=== PATIENT | female | born 1945 | race Native Hawaiian/Other Pacific Islander ===

== ENCOUNTER 2017-04-14 09:51 | Emergency (ER) | payer OTHER, MEDICARE ==
[~2017-04-14] VITALS: Ht 170.2 cm; Wt 68.9 kg
[2017-04-14 10:00] VITALS: TEMP 98.3
[2017-04-14] MEDS ORDERED: LISI10TA11 PO (10:15)
[2017-04-14] MEDS ORDERED: HYDR25TA60 PO (10:15)
[2017-04-14] MEDS ORDERED: ASPIR-LOW81 MG OR (10:15)
[2017-04-14] MEDS ORDERED: DIPH2.5T76 PO (10:17)
[2017-04-14 11:10] LABS: PLATELET COUNT 200 K/uL (152-353)
[2017-04-14 11:19] LABS: POTASSIUM 3.6 mmol/L (3.6-5.2)
[2017-04-14 12:18] VITALS: BP 126/81
== END 2017-04-14 12:28 | disposition home or self-care (01) ==
LOC: ED 09:51
DX: E86.0 Dehydration (principal); R79.89 Other specified abnormal findings of blood chemistry
CPT/HCPCS: 36415; 80053; 81000; 85027; 86609; 86618; 86663; 86664; 86665; 87081; 87804; 87880; 96361; 96374; 99284; J1885

== ENCOUNTER 2017-12-01 08:31 | Outpatient (CLI) | payer OTHER, MEDICARE ==
[~2017-12-01 08:31] MED LIST: ASPIR-LOW81 MG OR; DIPH2.5T76 PO; HYDR25TA60 PO; LISI10TA11 PO
== END 2017-12-01 19:04 | disposition home or self-care (01) ==
LOC: MAMMO 08:31
DX: Z12.31 Encounter for screening mammogram for malignant neoplasm of breast (principal)

== ENCOUNTER 2018-04-13 00:46 | Emergency (ER) | payer OTHER, MEDICARE ==
[~2018-04-13] VITALS: Ht 170.2 cm; Wt 72.6 kg
[2018-04-13 00:54] VITALS: TEMP 98
[2018-04-13 01:52] VITALS: BP 155/69
== END 2018-04-13 01:55 | disposition home or self-care (01) ==
LOC: ED 00:46
DX: F41.8 Other specified anxiety disorders (principal)
CPT/HCPCS: 99281

== ENCOUNTER 2018-04-14 11:20 | Outpatient (CLI) | payer OTHER, MEDICARE | END 2018-04-14 20:33 | disposition home or self-care (01) | LOC: US 11:20 | DX: R10.13 Epigastric pain (principal) ==

== ENCOUNTER 2018-12-15 08:45 | Outpatient (CLI) | payer OTHER, MEDICARE | END 2018-12-15 22:05 | disposition home or self-care (01) | LOC: MAMMO 08:45 | DX: Z12.31 Encounter for screening mammogram for malignant neoplasm of breast (principal) ==

== ENCOUNTER 2019-03-20 | Emergency (ER) | payer OTHER, MEDICARE ==
[~2019-03-20] VITALS: Ht 167.6 cm; Wt 75.3 kg
[2019-03-20 00:44] LABS: PLATELET COUNT 174 K/uL (152-353)
[2019-03-20 01:15] LABS: POTASSIUM 3.9 mmol/L (3.6-5.2)
[2019-03-20 01:35] VITALS: BP 148/67; TEMP 98.5
== END 2019-03-20 01:35 | disposition home or self-care (01) ==
LOC: ED
PROVIDERS: Emergency Medicine
DX: I10 Essential (primary) hypertension (principal)
CPT/HCPCS: 36415; 80053; 81000; 85027; 99283

== ENCOUNTER 2019-06-29 09:49 | Outpatient (CLI) | payer OTHER, MEDICARE | END 2019-06-29 23:45 | disposition home or self-care (01) | LOC: MRI 09:49 | DX: M54.2 Cervicalgia (principal) ==

== ENCOUNTER 2020-01-11 08:47 | Outpatient (CLI) | payer OTHER, MEDICARE | END 2020-01-11 20:53 | disposition home or self-care (01) | LOC: MAMMO 08:47 | DX: Z12.31 Encounter for screening mammogram for malignant neoplasm of breast (principal) ==

== ENCOUNTER 2021-02-26 08:54 | Outpatient (CLI) | payer OTHER, MEDICARE | END 2021-02-26 19:08 | disposition home or self-care (01) | LOC: MAMMO 08:54 | PROVIDERS: ATTEND Registered Nurse | DX: Z12.31 Encounter for screening mammogram for malignant neoplasm of breast (principal) ==

== ENCOUNTER 2021-05-10 20:12 | Emergency (ER) | payer OTHER, MEDICARE | END 2021-05-10 22:25 | disposition home or self-care (01) | LOC: ED 20:12 | DX: L27.0 Generalized skin eruption due to drugs and medicaments taken internally (principal); L50.0 Allergic urticaria; T37.8X5A Adverse effect of other specified systemic anti-infectives and antiparasitics, initial encounter; Y92.89 Other specified places as the place of occurrence of the external cause | CPT/HCPCS: 96372; 99283; J0171; J2930; Q0177 ==

== ENCOUNTER 2021-09-26 02:16 | Emergency (ER) | payer OTHER, MEDICARE ==
[~2021-09-26] VITALS: Ht 167.6 cm; Wt 70.3 kg
[2021-09-26 03:55] LABS: PLATELET COUNT 155 K/uL (152-353)
[2021-09-26] MEDS ORDERED: NP THYROID60 MG (03:55)
[2021-09-26] MEDS ORDERED: SIMV40TA57 PO (03:57)
[2021-09-26] MEDS ORDERED: CETI10TA PO (03:57)
[2021-09-26] MEDS ORDERED: CALCI20 (03:57)
[2021-09-26 04:03] LABS: POTASSIUM 3.9 mmol/L (3.6-5.2)
[2021-09-26 04:51] VITALS: BP 154/76; TEMP 98.4
== END 2021-09-26 04:51 | disposition home or self-care (01) ==
LOC: ED 02:16
PROVIDERS: Emergency Medicine Emergency Medical Services
DX: I10 Essential (primary) hypertension (principal); R51.9 Headache, unspecified
CPT/HCPCS: 36415; 80048; 83735; 85027; 93005; 99283

== ENCOUNTER 2021-11-18 14:28 | Outpatient (CLI) | payer OTHER, MEDICARE ==
[~2021-11-18 14:28] MED LIST changes: +CALCI20; +CETI10TA PO; +NP THYROID60 MG; +SIMV40TA57 PO
== END 2021-11-18 18:59 | disposition home or self-care (01) ==
LOC: MRI 14:28
PROVIDERS: ATTEND Nurse Practitioner Family
DX: G50.1 Atypical facial pain (principal)

== ENCOUNTER 2022-03-13 09:51 | Outpatient (CLI) | payer OTHER, MEDICARE | END 2022-03-13 19:09 | disposition home or self-care (01) | LOC: MAMMO 09:51 | PROVIDERS: ATTEND Nurse Practitioner Family | DX: Z12.31 Encounter for screening mammogram for malignant neoplasm of breast (principal) ==

== ENCOUNTER 2022-06-16 08:49 | Outpatient (CLI) | payer OTHER, MEDICARE | END 2022-06-16 19:08 | disposition home or self-care (01) | LOC: RAD 08:49 | PROVIDERS: ATTEND Nurse Practitioner Family | DX: N95.8 Other specified menopausal and perimenopausal disorders (principal) ==

== ENCOUNTER 2023-03-26 08:26 | Outpatient (CLI) | payer OTHER, MEDICARE | END 2023-03-26 19:03 | disposition home or self-care (01) | LOC: MAMMO 08:26 | PROVIDERS: ATTEND Nurse Practitioner Family | DX: Z12.31 Encounter for screening mammogram for malignant neoplasm of breast (principal) ==